=== PATIENT | female | born 1990 | race Caucasian/White ===

== ENCOUNTER 2017-05-06 19:41 | Emergency (ER) | payer BC ==
[2017-05-06] MEDS ORDERED: TETRACAINE HCL 150 DROP BTL ONE (19:57)
--- OUTSIDE RECORDS SUMMARY | 2017-05-06 20:17 | XMS REPORT | Continuity of Care Document ---
:1990 Author Organization [facility] ([facility]) Address [address] [place] [address] Phone [phone] Care Team Providers Name Role Phone Unavailable Primary Care Provider Unavailable Source Comments This disclosure is being made pursuant to the Care Everywhere program, applicable federal and state laws, and may not contain all informaitonavailable regarding this patient.[facility] ([facility]) Active Allergies and Adverse Reactions No Active Allergies Current Medications Not on file Active Problems Not on file Social History Tobacco Use Types Packs/Day Years Used Date Never Assessed Last Filed Vital Signs Vital Sign Reading Time Taken Blood Pressure - - Pulse - - Temperature - - Respiratory Rate - - Height 1.695 m (5' 6.73") 03/14/2003 1:46 PM CDT Weight 54.096 kg (119 lb 4.2 oz) 03/14/2003 1:46 PM CDT Body Mass Index 18.83 03/14/2003 1:46 PM CDT Oxygen Saturation - - Plan of Care Health Maintenance Due Date Last Done Comments Hepatitis B Vaccine (1 of 3 - Primary Series) 1991 HPV Vaccine (1 of 3 - Female/Unknown 3 Dose Series) 2002 Tdap Vaccine 2002 Cervical Cancer Screening 2009 Lipid Disorder Screening 2009 MMR Vaccine 2009 Td Vaccine 2009 Varicella Vaccine (1 of 2 - Adult - No Evidence of 2009 Immunity) Influenza Vaccine: Seasonal (#1) 06/27/2016 Results from Last 3 Months Not on file
[2017-05-06] MEDS ORDERED: CIPROFLOXACIN HCL 50 DROP BTL EACHEYE ONE (20:20)
[2017-05-06] MEDS ORDERED: CIPROFLOXACIN HCL 50 DROP BTL ONE (20:25)
--- NOTE | 2017-05-06 20:26 | ERNOTE ---
ENT HPI Date of Service: 05/06/17 Presenting Symptoms: foreign body, eye pain Time Seen by Provider: 05/06/17 20:00 Source: patient Exam Limitations: no limitations - Immun/Allergies/Home Medications Immunizations: IMMUNIZATION HX Immunizations Up to Date No Allergies/Adverse Reactions: Allergies Allergy/AdvReac Type Severity Reaction Status Date / Time No Known Allergies Allergy Unverified 05/06/17 19:59 Home Medications: HOME MEDICATIONS NK [No Home Medication] 05/06/17 [Last Taken Unknown] - History of Present Illness Narrative: 26-year-old female presents to the emergency room after grinding metal and on a trailer she now feels she has things in her eyes. Date (Duration): 05/06/17 Severity: Present: mild ENT Location: Present: eye (R), eye (L) Prearrival Treatment: Present: flushing eys Modifying Factors - Improves: Reports: nothing Modifying Factors - Worsens: Reports: other Associated Symptoms - ENT: Reports: foreign body Review of Systems - Review of Systems Constitutional: Present: no symptoms reported EYE: Present: see HPI, eye pain, tearing. Absent: eye discharge, blurred vision , double vision, vision changes ENT: Present: no symptoms reported Respiratory: Present: no symptoms reported Cardiology: Present: no symptoms reported Gastrointestinal/Abdominal: Present: no symptoms reported Genitourinary: Present: no symptoms reported Musculoskeletal: Present: no symptoms reported Skin: Present: no symptoms reported Neurological: Present: no symptoms reported Endocrine: Present: no symptoms reported Hematologic/Lymphatic: Present: no symptoms reported Psych: Present: no symptoms reported All Other Systems: All systems neg except as marked - Patient's Past Medical History Patient History - Medical: Anemia Patient History - Cardiac/Respiratory: Asthma, Hypertension Patient History - Cancer: No Hx of Cancer - Social History Living Situations: home Smoking Status: Never smoker - Immunizations Immunizations Up to Date: No Physical Exam - Physical Exam General Appearance: Present: wd/wn, alert, mild distress Eye Exam: PERRL: bilateral, Sclera injection: bilateral, Eyelid inflammation: bilateral, Photophobia: bilateral Ears, Nose, Throat: Present: normal ENT inspection, normal pharynx Neck: Present: normal inspection, nontender Respiratory: Present: no respiratory distress, normal breath sounds, chest nontender, lungs clear Cardiovascular/Chest: Present: regular rate, rhythm, no murmur, normal peripheral pulses Gastrointestinal/Abdominal: Present: normal bowel sounds, nontender, soft Rectal Exam: Present: nontender, normal rectal tone Back Exam: Present: normal inspection, normal range of motion, no CVA tenderness , no vertebral tenderness Extremity Exam: Present: normal inspection, normal range of motion, no edema Neurological Exam: Present: alert, oriented, normal mood/affect, no motor/ sensory deficits Skin Exam: Present: normal color, warm/dry Lymphatic Exam: Present: no adenopathy ED Progress - Vital Signs Patient's Vital Signs:: I have reviewed the patient's vital signs. Vital Signs: Vital Signs 05/06/17 19:55 Temperature 36.8 C Pulse Rate 68 Respiratory 18 Rate Blood Pressure 154/88 O2 Sat by Pulse 98 Oximetry - Progress/Reassessment Chief Complaint: Eye Injury/Trauma Progress:: Improved Procedures Narrative: Patient had metal shavings in her right eye. Both ER attending and [employer] attempted to remove metal shavings. Fluid we did remove the metal shavings but there may be a rust ring around her cornea from where the metal was better. Patient was instructed to follow-up with her eye doctor on Monday. Left eye there was some debris in her left lower lid. No debris noted in cornea on her left eye. Patient tolerated procedure well and did have some relief after eyes were flushed repeatedly and agree was removed. Eye Location: both eyes Tetracaine Drops Administered: Yes Cyclogel 2 Drops Administered: both eyes Eye - Cornea: Bilateral: examined w/fluorescein, abrasion, foreign body Eye FB Removal: removal w/ cotton swab Antibiotic Ointment/Drps Admin: both eyes Complications: Pt ene procedure well Plan - Plan Plan: Patient was given pain medication and I am medication regarding this incident. She is to follow-up on Monday with her eye doctor related to the metal shaving that was removed from her right eye. Departure Clinical Impression: Corneal abrasion of both eyes Qualifiers: Encounter type: initial encounter Qualified Code(s): S05.01XA - Injury of conjunctiva and corneal abrasion without foreign body, right eye, initial encounter - Departure Disposition: Home Follow Up Needed Condition: Stable Instructions: Corneal Abrasion, [id number] Additional Instructions: Continue any previous home medications as directed. Follow-up with her eye doctor on Monday related to abrasions. Return to the emergency room if symptoms become worse or pain is not able to be controlled with over-the- counter pain medications. Patient was given specific instructions on how to use her Cipro eyedrops.
[2017-05-06] MEDS ORDERED: TETRACAINE HCL 150 DROP BTL EACHEYE ONE (20:32)
[2017-05-06 23:27] VITALS: BP 148/79
== END 2017-05-06 20:33 | disposition home or self-care (01) ==
LOC: ER 19:41
PROC: 08C1XZZ Extirpation of Matter from Left Eye, External Approach (ICD-10-PCS; principal; 2017-05-06)
PROC: 08C0XZZ Extirpation of Matter from Right Eye, External Approach (ICD-10-PCS; 2017-05-06)
DX: S05.01XA Injury of conjunctiva and corneal abrasion without foreign body, right eye, initial encounter (principal); X58.XXXA Exposure to other specified factors, initial encounter; Y93.89 Activity, other specified; Y92.9 Unspecified place or not applicable